=== PATIENT | male | born 1960 | race Caucasian/White ===

== ENCOUNTER 2020-07-10 01:48 | Outpatient (CLI) | payer BC, SELFPAY ==
[2020-07-10 18:17] LABS: SARS-CoV-2 RNA PCR Negative
== END 2020-07-10 01:49 | disposition home or self-care (01) ==
LOC: ANHCOVIDDT 01:48
PROVIDERS: PCP Internal Medicine; Visit Provider Internal Medicine Gastroenterology
DX: Z01.812 Encounter for preprocedural laboratory examination (principal); Z20.828 Contact with and (suspected) exposure to other viral communicable diseases
CPT/HCPCS: 87635; C9803; U0003

== ENCOUNTER 2020-07-12 00:55 | Day surgery (SDC) | payer BC, SELFPAY ==
[2020-07-08 15:07] VITALS: BMI 24.7
[2020-07-12 06:57] VITALS: BMI 26.2
[2020-07-12 06:58] VITALS: BP 125/81; PULSE 71; RESP 16; TEMP 36.2; O2SAT 98
[2020-07-12] MEDS: LACTATED RINGERS 1,000 ML 150 ML IV CONT (07:07)
--- NOTE | 2020-07-12 07:27 | PM.HPGS ---
History of Present Illness History of Present Illness Consent: Risks, benefits, and alternatives have been discussed and questions answered. Patient agrees to proceed with procedure. Chief complaint: Dysphagia Narrative: Oneil Knight is a 59 year old male with dysphagia. He has a history of an esophageal stricture PMFSH Family History Family History Other Cerebrovascular accident Diabetes mellitus Social History Social History Smoking status: Never smoker Alcohol intake: current Drinks per week: 2 Alcohol use details: BEER Substance use: never Substance use type: does not use Living arrangements: with family Gender identity (if verbalized by the patient): Male Spiritual care concerns: No Meds Home Medications and Allergies Home Medications Medication Instructions Recorded Confirmed Type No Home Medications 07/08/20 07/12/20 History Allergies Allergy/AdvReac Type Severity Reaction Status Date / Time No Known Allergies Allergy Verified 07/12/20 06:53 Vital Signs Vital Signs - 24 hr 07/12/20 06:58 Temperature 36.2 C L Pulse Rate 71 Respiratory Rate 16 Blood Pressure 125/81 Pulse Oximetry 98 Exam Const: General: alert Orientation/consciousness: patient oriented x3 Resp: Auscultation: clear to auscultation bilaterally Cardio: Rhythm: regular rhythm GI: GI Palp: Yes Soft to palpation and No Tenderness to palpation present (GI) Neuro: General: patient oriented x3 Assessment and Plan Assessment and plan (1) Dysphagia: Code(s): R13.10 - Dysphagia, unspecified Status: Acute Assessment and Plan: EGD with possible biopsy or dilatation or cautery.
--- NOTE | 2020-07-12 07:45 | WPDANESEPPF ---
Anes - Initial Pre Proc Eval Procedure: Operation Date: 07/12/20 08:00 Proposed Procedures p Esophagogastroduodenoscopy - Beni Nina MD Date/Time: 07/12/20 07:45 Surgeon: Beni Nina MD Pre Op Diagnosis: Dysphagia Patient Data Age: 59 Gender: M Height: 6 ft 1 in Weight: 90 kg Last Vital Signs Temp 36.2 C L 07/12/20 06:58 Pulse 71 07/12/20 06:58 Resp 16 07/12/20 06:58 BP 125/81 07/12/20 06:58 Pulse Ox 98 07/12/20 06:58 Allergies Allergy/AdvReac Type Severity Reaction Status Date / Time No Known Allergies Allergy Verified 07/12/20 06:53 Home Medications Medication Instructions Recorded Confirmed Type No Home Medications 07/08/20 07/12/20 History Patient hx anesthesia problems: none Family hx anesthesia problems: none PMFSH Family History Family History Other Cerebrovascular accident Diabetes mellitus Social History Social History Smoking status: Never smoker Alcohol intake: current Drinks per week: 2 Alcohol use details: BEER Substance use: never Substance use type: does not use Living arrangements: with family Gender identity (if verbalized by the patient): Male Spiritual care concerns: No Anes - Eval Final PreProcedure Day of Procedure 07/12/20 07:45 Patient weight: overweight Heart: regular rate and rhythm Lungs: clear to auscultation Airway: Mallampati scale class II Neurological: alert and oriented Last oral intake: >/= 8 hours ASA classification: II Emergent: no Anesthetic plan: proceed Anesthesia type and monitoring: general GIVS and standard monitoring Informed Consent: The patient's anesthetic plan and its attendant risks and benefits were discussed with the patient/family/POA. Questions were solicited and answers provided to the satisfaction of the patient/family/POA.
[2020-07-12 08:12] VITALS: BP 114/67; PULSE 69; RESP 16; O2SAT 98
[2020-07-12 08:22] VITALS: BP 122/66; PULSE 72; RESP 18; O2SAT 99
== END 2020-07-12 09:02 | disposition home or self-care (01) ==
PROVIDERS: PCP Internal Medicine; Visit Provider Internal Medicine Gastroenterology
PROC: 0DJ08ZZ Inspection of Upper Intestinal Tract, Via Natural or Artificial Opening Endoscopic (ICD-10-PCS; CPT 43235; principal; 2020-07-12 08:00)
DX: K21.00 Gastro-esophageal reflux disease with esophagitis, without bleeding (principal); K22.2 Esophageal obstruction
CPT/HCPCS: 43249; 88305; C1726; J2001; J2704; J7120

== ENCOUNTER → 2021-05-28 16:20 | Outpatient (CLI) | payer BC, SELFPAY ==
--- NOTE | ~2021-05-28 | XR_ITS ---
XR knee RT 3V DATE: 05/28/2021 16:46 INDICATION: Right knee effusion TECHNIQUE: [place] and standing AP and lateral views COMPARISON: None FINDINGS: There is prominent anterior prepatellar soft tissue swelling. No fracture or dislocation or joint effusion is evident. No periosteal reaction or bone destruction. There is mild loss of height of medial compartment joint space and slight periarticular spurring at the medial and lateral compart ments. Joint spaces are otherwise relatively preserved. No radiopaque intra-articular loose body or c hondrocalcinosis. IMPRESSION: Mild osteoarthritis Prominent prepatellar soft tissue swelling Reviewed, dictated and finalized at location A.
== END ==
PROVIDERS: PCP Internal Medicine; Visit Provider Internal Medicine
DX: M17.11 Unilateral primary osteoarthritis, right knee (principal); M25.461 Effusion, right knee; M79.89 Other specified soft tissue disorders
CPT/HCPCS: 73562

== ENCOUNTER 2021-11-21 07:48 | Outpatient (CLI) | payer BC, SELFPAY ==
--- NOTE | ~2021-11-21 | MR_ITS ---
EXAMINATION: MR knee LT wo con DATE: 11/21/2021 09:02 INDICATION: Left knee pain. TECHNIQUE: Magnetic resonance imaging (MRI) of the left knee was performed without intravenous contra st. Sequences included axial PD-weighted FS FSE, coronal PD-weighted FSE and PD-weighted FS FSE, sagi ttal PD-weighted FSE, and sagittal T2-weighted FS FSE. COMPARISON: None. FINDINGS: Medial compartment: Medial meniscus is normal. There is cartilage surface irregularity of femoral condyle and tibial cond yle. Lateral compartment: Lateral meniscus is normal. There is a fracture of lateral tibial plateau involving the lateral and a nterolateral articular surface with low signal fracture lines and edema-like bone marrow signal inten sity with less than 2 mm depression of the articular surface. There is cartilage surface regularity o f tibial condyle and femoral condyle. Patellofemoral compartment: There is deep cartilage fissuring of patellar medial facet with minimal subchondral edema-like marrow signal intensity. There is shallow partial-thickness cartilage loss of medial and central trochlea. Ligaments and tendons: The anterior and posterior cruciate ligaments are normal. Medial collateral ligament is normal. There are changes of prior sprain of fibular collateral ligament characterized by thickening and increased signal intensity proximally. There is mild patellar tendinopathy. Fluid: There is a small knee joint effusion. There is a small ruptured Love's cyst. There is mild prepatell ar and superficial infrapatellar bursitis. IMPRESSION: 1. Acute versus subacute lateral tibial plateau fracture with less than 2 mm depression of the articu lar surface. 2. Mild tricompartmental chondrosis. 3. Small knee joint effusion. 4. Small ruptured Love's cyst. Reviewed, dictated and finalized at location A. DEVELOPER IMPRESSION: 1. Acute versus subacute lateral tibial plateau fracture with less than 2 mm de pression of the articular surface. 2. Mild tricompartmental chondrosis. 3. Small knee joint effusion. 4. Small ruptured Love's cyst.
== END 2021-11-21 07:49 | disposition home or self-care (01) ==
LOC: ANHIMG 07:52
PROVIDERS: PCP Internal Medicine
DX: S83.512A Sprain of anterior cruciate ligament of left knee, initial encounter (principal); S82.142A Displaced bicondylar fracture of left tibia, initial encounter for closed fracture; M25.462 Effusion, left knee; M70.42 Prepatellar bursitis, left knee
CPT/HCPCS: 73721

== ENCOUNTER → 2023-05-21 09:25 | Outpatient (CLI) | payer BC, SELFPAY ==
--- NOTE | ~2023-05-21 | XR_ITS ---
Clinical Indication: Cough PA and lateral of the chest: Comparison: 01/29/2016 Findings: The lungs are clear, without evidence of focal consolidation or pleural effusion. Cardiome diastinal silhouette is within normal limits. Bones and soft tissues are unremarkable. Impression: Normal chest. Reviewed, dictated and finalized at [facility]. Impression: Normal chest.
== END ==
PROVIDERS: PCP Internal Medicine; Visit Provider Internal Medicine
DX: R05.9 Cough, unspecified (principal)
CPT/HCPCS: 71046